=== PATIENT | female | born 1980 ===

== ENCOUNTER 2018-03-08 22:43 | Inpatient (IN) | payer MEDICAID, SELFPAY ==
[2018-03-08 23:17] VITALS: BMI 34.3
[2018-03-08] MEDS ORDERED: Oxytocin 30 UNIT 30 UNITS/500 ML BAG IV ONE ×2 (23:17→23:18)
[2018-03-08] MEDS ORDERED: Benzocaine/Menthol SPRAY TOP PRN (23:18)
[2018-03-08] MEDS ORDERED: OXYTOCIN/0.9 % NS 20 UNIT/1,000 ML BAG IV ONE (23:18)
[2018-03-08] MEDS ORDERED: Oxycodone/Acetaminophen 5/325 mg Tab PO PRN (23:18)
[2018-03-08] MEDS ORDERED: Lidocaine 1% Inj (20ml) ONE (23:18)
[2018-03-09 00:12] VITALS: RESP 20; O2SAT 100
[2018-03-09 00:14] LABS: HEMOGLOBIN 12.2 g/dL (12.0-16.0); MEAN CELL VOLUME 81.5 fl (81.0-99.0); MEAN CORPUSCULAR HEMOGLOBIN 26.3 pg (27.0-31.0); MEAN CORPUSCULAR HGB CONC 32.3 g/dL (33.0-37.0); RBC 4.65 Mil/uL (3.80-5.20); RED CELL DISTRIBUTION WIDTH 16.3 % (11.5-14.5); WHITE BLOOD COUNT 11.6 K/uL (4.8-10.8)
[2018-03-09] MEDS ORDERED: Benzocaine/Menthol SPRAY TOP PRN (01:40)
[2018-03-09] MEDS ORDERED: Oxycodone/Acetaminophen 5/325 mg Tab PO PRN (01:40)
--- NOTE | 2018-03-09 09:03 | OBDS ---
DELIVERY PERSONNEL Delivery Doctor: Saritha Cardona MD Metallographer: rory crisostomo Resident: Piper MATERNAL INFORMATION Delivery Anesthesia: Local Medications in Delivery: Pitocin Estimated Blood Loss (ml): 250 Placenta Cultured: No Maternal Complications: None Provider Comments: Normal spontaneous vaginal delivery. Patient delivered viable infant female with Apgars of 9 and 9 at one and 5 minutes respectively. P lacenta delivered spontaneously. Laceration repaired, as above. Uterus firm and appropriately hemosta tic following delivery. Patient tolerated delivery and repair well. No complications. Estimated blood loss 200 mL. LABOR SUMMARY EDC: 03/20/2018 00:00 No. Babies in Womb: 1 Attempted: No Labor Anesthesia: None LABOR INFORMATION Reason for Induction: Not Applicable Onset of Labor: 03/08/2018 15:00 Complete Dilatation: 03/08/2018 22:52 Oxytocin: N/A Group B Beta Strep: Negative Antibiotics # of Doses: N/A Antibiotics Time of Last Dose: N/A Steroids Given: None Reason Steroids Not Administered: Not Applicable MEMBRANES Membranes Rupture Method: Spontaneous Rupture of Membranes: 03/08/2018 07:00 Length of Rupture (hrs): 16.27 Amniotic Fluid Color: Clear Amniotic Fluid Amount: Moderate Amniotic Fluid Odor: Normal STAGES OF LABOR Stage 1 hrs: 7 Stage 1 min: 52 Stage 2 hrs: 0 Stage 2 min: 24 Stage 3 hrs: 0 Stage 3 min: 13 Total Time in Labor hrs: 8 Total Time in Labor min: 29 VAGINAL DELIVERY Laceration Extension: Second Degree Laceration Type: Perineal Laceration Repair: Yes Laceration Repair Note: Second-degree midline perineal laceration. Area infiltrated with 1% lidocain e. Laceration repaired with 2. 0 repeat without complication. Patient tolerated repair well. Initial Vag Sponge Count: 15 Final Vag Sponge Count: 15 Initial Vag Sharps Count: 2 Final Vag Sharps Count: 2 Sponge Count Correct: Yes Sharps Count Correct: Yes Count Comment: MD confirmed count BABY A INFORMATION Delivery Date/Time: 03/08/2018 23:16 Method of Delivery: Vaginal Born in Route : No : N/A Forceps: N/A Vacuum Extraction: N/A Shoulder Dystocia : No SHOULDER DYSTOCIA BABY A Infant Delivery Date/Time: 03/08/2018 23:16 PRESENTATION/POSITION BABY A Presentation: Cephalic Cephalic Presentation: Vertex Vertex Position: Left Occipital Anterior Breech Presentation: N/A PLACENTA INFORMATION BABY A Placenta Delivery Time : 03/08/2018 23:29 Placenta Method of Delivery: Spontaneous Placenta Status: Delivered SCORES BABY A Heart Rate 1 min: >100 bpm Resp Effort 1 min: Good Cry Reflex Irritability 1 min: Cough or Sneeze or Pulls Away Muscle Tone 1 min: Active Motion Color 1 min: Body [place], Extremities Blue Resuscitation Effort 1 min: Tactile Stimulation SCORE 1 MIN: 9 Heart Rate 5 min: >100 bpm Resp Effort 5 min: Good Cry Reflex Irritability 5 min: Cough or Sneeze or Pulls Away Muscle Tone 5 min: Active Motion Color 5 min: Body [place], Extremities Blue Resuscitation Effort 5 min: N/A SCORE 5 MIN: 9 INFANT INFORMATION BABY A Gestational Age at Delivery: 38.2 Gestational Status: Term Infant Outcome : Liveborn Infant Condition : Stable Sex: Male IDENTIFICATION/MEDS BABY A ID Band Number: [id number] ID Band Location: Left Leg; Left Arm WEIGHT/LENGTH BABY A Birthweight (gms): 3705 Infant Weight (lb): 8 Infant Weight (oz): 3 CORD INFORMATION BABY A No. Cord Vessels: 3 Nuchal Cord : N/A Cord Blood Taken: Yes Suction: Mouth; Nose ASSESSMENT BABY A Complications: None Physical Findings at Delivery: Within Normal Limits Respirations: Appears Normal Gear Hobber/ALS Called : No Infant Care By: Janel Transferred To: Remains with Mother
--- NOTE | 2018-03-09 09:05 | OBDS ---
DELIVERY PERSONNEL Delivery Doctor: Saritha Cardona MD Disaster Response Director: rory crisostomo Resident: Piper MATERNAL INFORMATION Delivery Anesthesia: Local Medications in Delivery: Pitocin Estimated Blood Loss (ml): 250 Placenta Cultured: No Maternal Complications: None Provider Comments: Normal spontaneous vaginal delivery. Patient delivered viable infant female with Apgars of 9 and 9 at one and 5 minutes respectively. P lacenta delivered spontaneously. Laceration repaired, as above. Uterus firm and appropriately hemosta tic following delivery. Patient tolerated delivery and repair well. No complications. Estimated blood loss 200 mL. LABOR SUMMARY EDC: 03/20/2018 00:00 EDC: 03/20/2018 00:00 EDC: 03/20/2018 00:00 No. Babies in Womb: 1 Attempted: No Labor Anesthesia: None LABOR INFORMATION Reason for Induction: Not Applicable Onset of Labor: 03/08/2018 15:00 Complete Dilatation: 03/08/2018 22:52 Oxytocin: N/A Group B Beta Strep: Negative Antibiotics # of Doses: N/A Antibiotics Time of Last Dose: N/A Steroids Given: None Reason Steroids Not Administered: Not Applicable MEMBRANES Membranes Rupture Method: Spontaneous Membranes Rupture Method: Spontaneous Rupture of Membranes: 03/08/2018 07:00 Rupture of Membranes: 03/08/2018 07:00 Length of Rupture (hrs): 16.27 Amniotic Fluid Color: Bloody Amniotic Fluid Color: Clear Amniotic Fluid Amount: Moderate Amniotic Fluid Amount: Moderate Amniotic Fluid Odor: Normal Amniotic Fluid Odor: Normal STAGES OF LABOR Stage 1 hrs: 7 Stage 1 min: 52 Stage 2 hrs: 0 Stage 2 min: 24 Stage 3 hrs: 0 Stage 3 min: 13 Total Time in Labor hrs: 8 Total Time in Labor min: 29 VAGINAL DELIVERY Laceration Extension: Second Degree Laceration Type: Perineal Laceration Repair: Yes Laceration Repair Note: Second-degree midline perineal laceration. Area infiltrated with 1% lidocain e. Laceration repaired with 2. 0 repeat without complication. Patient tolerated repair well. Initial Vag Sponge Count: 15 Final Vag Sponge Count: 15 Initial Vag Sharps Count: 2 Final Vag Sharps Count: 2 Sponge Count Correct: Yes Sharps Count Correct: Yes Count Comment: MD confirmed count BABY A INFORMATION Infant Delivery Date/Time: 03/08/2018 23:16 Method of Delivery: Vaginal Born in Route : No : N/A Forceps: N/A Vacuum Extraction: N/A Shoulder Dystocia : No SHOULDER DYSTOCIA BABY A Delivery Date/Time: 03/08/2018 23:16 PRESENTATION/POSITION BABY A Presentation: Cephalic Presentation: Cephalic Cephalic Presentation: Vertex Vertex Position: Left Occipital Anterior Breech Presentation: N/A PLACENTA INFORMATION BABY A Placenta Delivery Time : 03/08/2018 23:29 Placenta Method of Delivery: Spontaneous Placenta Status: Delivered SCORES BABY A Heart Rate 1 min: >100 bpm Resp Effort 1 min: Good Cry Reflex Irritability 1 min: Cough or Sneeze or Pulls Away Muscle Tone 1 min: Active Motion Color 1 min: Body [place], Extremities Blue Resuscitation Effort 1 min: Tactile Stimulation SCORE 1 MIN: 9 Heart Rate 5 min: >100 bpm Resp Effort 5 min: Good Cry Reflex Irritability 5 min: Cough or Sneeze or Pulls Away Muscle Tone 5 min: Active Motion Color 5 min: Body [place], Extremities Blue Resuscitation Effort 5 min: N/A SCORE 5 MIN: 9 INFANT INFORMATION BABY A Gestational Age at Delivery: 38.2 Gestational Status: Term Outcome : Liveborn Infant Condition : Stable Infant Sex: Male IDENTIFICATION/MEDS BABY A ID Band Number: [id number] ID Band Location: Left Leg; Left Arm WEIGHT/LENGTH BABY A Birthweight (gms): 3705 Weight (lb): 8 Weight (oz): 3 CORD INFORMATION BABY A No. Cord Vessels: 3 Nuchal Cord : N/A Cord Blood Taken: Yes Infant Suction: Mouth; Nose ASSESSMENT BABY A Infant Complications: None Physical Findings at Delivery: Within Normal Limits Infant Respirations: Appears Normal Anthropology Professor/ALS Called : No Care By: Janel Transferred To: Remains with Mother
[2018-03-09 12:12] LABS: BASO # 0.1 K/uL (0.0-0.2); BASO % 1.1 % (0.0-2.0); EOS # 0.1 K/uL (0.0-0.7); HEMOGLOBIN 11.8 g/dL (12.0-16.0); LYMPH # 1.5 K/uL (1.0-4.3); LYMPH % 13.9 % (20.0-40.0); MEAN CELL VOLUME 80.5 fl (81.0-99.0); MEAN CORPUSCULAR HEMOGLOBIN 26.4 pg (27.0-31.0); MEAN CORPUSCULAR HGB CONC 32.8 g/dL (33.0-37.0); MEAN PLATELET VOLUME 7.9 fl (7.2-11.7); MONO # 0.9 K/uL (0.0-0.8); NEUT # 8.4 K/uL (1.8-7.0); RBC 4.47 Mil/uL (3.80-5.20); RED CELL DISTRIBUTION WIDTH 15.9 % (11.5-14.5); WHITE BLOOD COUNT 11.1 K/uL (4.8-10.8)
--- NOTE | 2018-03-09 16:51 | OBPPN ---
Datetime: 03/09/2018 06:03 PP Pain Prov: Within normal limits PP Nausea Prov: Denies PP Flatus Prov: Yes PP Heart Prov: Normal PP Lungs Prov: Normal PP Abdomen/Uterus Prov: Normal PP Lochia Prov: Normal PP Extremities Prov: Normal PP Comments Phys Exam Prov: see progress note PP Impression Prov: Normal progression PP Plan Prov: Continue present management PP Progress Note Prov: S: 37 y/o s/p on 03/08/18. Patient is seen and examined this fuad reyes, had an uneventful overnight. Patient c/o occasional mild pelvic pain that is controlled with medi cation. Pt gets OOB and ambulate w/o dizziness, is tolerating regular diet w/o N/V. Patient reports l ochia like menses in volume, +flatus, voiding well. w/o difficulties. Denies RODAS, chest pain, blurred vision, SOB, fever, or calf pain. O: VS WNL GEN: Sitting comfortably in bed, NAD HEENT: NCAT LUNGS: CTA, no wheezing CVS: RRR, S1, S2 present normal, no murmurs. ABD: uterus firm at umbilical level EXT: no edema, Davis's negative A/P 37 y/o s/p , with normal progression, patient is today on her PPD1. -Regular diet -Encourage ambulation -Encourage -PNV 1 tab PO daily -Ibuprofen 600mg 1 tab Q6h prn for mild-mod pain -D/C planning on 03/10/18 Mikala Saldaña MD PGY1 Attending addendum: I saw and examined the patient at bedside myself. I reviewed the resident note with attending and agree with findings and management. Anticipate DC home tomorrow. Nexplanon for contraception pp. f/u w/ Dr. Payan. Chantelle Trujillo MD Vital Signs Provider PP: Reviewed; Within Normal Limits
[2018-03-10] MEDS: Bacitracin Opht OINT 3.5GM OD SCH ×3 (00:49→08:25)
[2018-03-10 18:50] VITALS: BP 124/71; PULSE 75; TEMP 98.1
--- NOTE | 2018-03-10 19:17 | OBPPN ---
Datetime: 03/10/2018 06:18 PP Pain Prov: Within normal limits PP Nausea Prov: Denies PP Flatus Prov: Yes PP BM Prov: Yes PP Comments Phys Exam Prov: see progress note PP Impression Prov: Normal progression PP Plan Prov: Discharge PP Progress Note Prov: S: 37 y/o s/p on 03/08/18. Patient is seen and examined this fuad shepherd Patient c/o some itching sensation on her right eye with redness and some clear discharge, no eye lid stuck together, no eye pain. Patient reports mild pelvic pain that is controlled with medicatio n. Pt is getting OOB w/o dizziness and is tolerating regular diet w/o N/V. Patient reports lochia is like menses in volume, +flatus, voiding well. w/o difficulties. Denies RODAS, chest pain, blurred vision, SOB, fever, or calf pain. O: VS WNL GEN: Sitting comfortably in bed, NAD HEENT: NCAT Right eye with mild redness of conjunctivae, eyelids non stuck togther, minimal clear discharge n oted. LUNGS: CTA, no wheezing CVS: RRR, S1, S2 present normal, no murmurs. ABD: uterus firm at umbilical level EXT: no edema, Davis's negative A/P 37 y/o s/p , with normal progression, patient is today on her PPD2. Patient with c/o right eye redness and itching, no eyelids stuck together seen, and with minimal eye discharge appears to be mild acute conjunctivitis most likely 2/2 mechanical irritation, however will provide treatment with topical opht bacitracin oitment. -Regular diet -Encourage ambulation -Encourage -PNV 1 tab PO daily -Wash hand before handling baby -Bacitracin apply to affected eye 0.5 inch ribbon Q4h -Ibuprofen 600mg 1 tab Q6h prn for mild-mod pain -D/C planning today Mikala Saldaña MD PGY1. Attending Note: Patient was discussed with the resident and I agree with the above. Vital Signs Provider PP: Reviewed; Within Normal Limits
--- NOTE | 2018-03-10 19:19 | OBDCSUM ---
Datetime: 03/10/2018 06:28 Discharge Time: 03/10/2018 14:25 Follow up in weeks, Provider: [facility] 4-6 weeks Disch Activity Restrictions: No lifting; No sexual activity; Nothing in vagina - [place], tampon s, douche Discharge Comment, Provider: Diagnosis: 37 y/o s/p of a baby boy on 03/08/18 at 23:16 with EGA: 38.3 weeks at time of delivery. [place]: Male, Wt. 3705 G, 9/9 Post- D/C Summary: No OB complications. No complications during post- period. Lochia l ess than menses. Pt able to pass gas, BM, ambulate and pass urine. Tolerate regular diet, Fundus firm below umbilicus level. Pt is hemodynamically stable. H/H : 11. Discharge Instructions given to patient: Encourage PNV 1 tab PO daily May take Ibuprofen OTC 400mg Q 6h prn for mild-mod pain if needed Tobramycin Opth Susp. 1-2 drops OD, QID x 5 days ED precautions: If excessive bleeding, pain that does not get relief, fever >100.4, calf pain, pal pitations, SOB, CP or other concerning symptom go to the ED. PT was urged if feeling sad, mood swing, depression, neglect of baby, suicidal thoughts, homicidal thoughts go to ER or call 911 for help Pt should go to her Primary care doctor if have difficulty with breast feeding F/U in 4-6 weeks for PP visit with you PMD. Mikala Saldaña MD PGY1
== END 2018-03-10 14:25 | disposition home or self-care (01) | DRG 560 ==
LOC: H.EROB2 22:43 → H.L&D 23:17 → H.OB/GYN 03-09 01:41
PROVIDERS: ADMIT Obstetrics & Gynecology; ATTEND Obstetrics & Gynecology
PROC: 10E0XZZ Delivery of Products of Conception, External Approach (ICD-10-PCS; principal; 2018-03-08)
PROC: 0KQM0ZZ Repair Perineum Muscle, Open Approach (ICD-10-PCS; 2018-03-08)
PROC: 4A1HXCZ Monitoring of Products of Conception, Cardiac Rate, External Approach (ICD-10-PCS; 2018-03-08)
DX: O70.1 Second degree perineal laceration during delivery (principal); Z37.0 Single live birth; Z3A.38 38 weeks gestation of pregnancy